=== PATIENT | female | born 1955 | race Caucasian/White ===

== ENCOUNTER 2019-03-08 07:04 | Day surgery (SDC) | payer BC, OTHER ==
[2019-03-08] MEDS ORDERED: Propofol 200 MG/20 ML SDV IV ONE (07:05)
[2019-03-08] MEDS ORDERED: Lactated Ringers 1,000 ML IV SCH (07:15)
--- NOTE | 2019-03-08 09:08 | PCM.OPNOTE ---
- General Post-Op/Procedure Note Date of Surgery/Procedure: 03/08/19 Operative Procedure(s): c scope Findings: nl exam Pre Op Diagnosis: screening c scope Post-Op Diagnosis: nl exam Anesthesia Technique: MAC Primary Surgeon: Eber Maldonado Anesthesia Provider: Leobardo José Pathology: none Complications: None Condition: Good Free Text/Narrative:: see dictation
--- NOTE | 2019-03-08 10:27 | OR ---
DATE OF OPERATION: 03/08/2019 SURGEON: Eber Maldonado MD PROCEDURE PERFORMED: Colonoscopy. PREOPERATIVE DIAGNOSIS: Need for screening C scope. POSTOPERATIVE DIAGNOSIS: Normal exam. INDICATIONS FOR PROCEDURE: This is a 63-year-old white female, who presents for a screening C scope. Last one was 10 years ago. She is without complaints. She was offered and accepted same. DESCRIPTION OF OPERATION: After an excellent IV sedation was administered, digital rectal exam was performed. No marked abnormality was noted. Flexible colonoscope inserted, advanced to the cecum. Prep was excellent. The following findings were noted. Ascending colon, unremarkable. Transverse colon, unremarkable. Descending colon, unremarkable. Sigmoid and rectum, unremarkable. Colon was deflated as the scope was removed. The patient tolerated the procedure well. RECOMMENDATIONS: Repeat scope in 10 years. /[id number] /MODL
== END 2019-03-08 09:50 | disposition home or self-care (01) ==
LOC: FB.SDS 07:04
PROVIDERS: ATTEND Surgery
DX: Z12.11 Encounter for screening for malignant neoplasm of colon (principal); I25.10 Atherosclerotic heart disease of native coronary artery without angina pectoris; I10 Essential (primary) hypertension; E78.00 Pure hypercholesterolemia, unspecified; E78.1 Pure hyperglyceridemia; K21.9 Gastro-esophageal reflux disease without esophagitis; G43.909 Migraine, unspecified, not intractable, without status migrainosus; Z80.0 Family history of malignant neoplasm of digestive organs; Z79.899 Other long term (current) drug therapy
CPT/HCPCS: 93005; J2001; J2704; J7120